=== PATIENT | male | born 1995 | race Caucasian/White ===

== ENCOUNTER 2018-04-07 18:41 | Emergency (ER) | payer BC ==
[2018-04-07] MEDS ORDERED: HYDROcodone/Acetaminophen 5/325 mg Tablet ONE (18:58)
[2018-04-07] MEDS ORDERED: Adacel (T-DAP) 0.5 ML VIAL ONE (18:58)
[2018-04-07] MEDS ORDERED: Lidocaine 1% 20 ML MDV ONE (19:23)
--- NOTE | 2018-04-07 20:23 | RAD ---
RIGHT FOOT: 04/07/18 Three views. HISTORY: Injury to right great toe. FINDINGS/IMPRESSION: There is a comminuted fracture involving the distal phalanx of the great toe with associated soft tis vince disruption. Fracture involves the articular surface. No other fracture identified. POS: [facility]
== END 2018-04-07 20:53 | disposition home or self-care (01) ==
LOC: SCSER 18:41
DX: S92.421A Displaced fracture of distal phalanx of right great toe, initial encounter for closed fracture (principal); S91.201A Unspecified open wound of right great toe with damage to nail, initial encounter; W45.8XXA Other foreign body or object entering through skin, initial encounter
CPT/HCPCS: 11730; 90471; 90715; J2001